=== PATIENT | female | born 1980 | race Caucasian/White ===

== ENCOUNTER 2018-06-23 14:43 | Emergency (ER) | payer BC ==
[2018-06-23 14:54] VITALS: BP 153/99
--- NOTE | 2018-06-23 15:28 | UC ---
Skin Complaint HPI - HPI Summary HPI Summary: Patient is a 37year old , who present today to the urgent care with facial rash that started last week. she notices at at work, she works at [employer] which is a delinquent [employer] facility. she noticed a facial rash first time last week and felt it was a reaction to something, was seen at the nurse's office at work and she was given hydrocortisone 1% ointment which resolved her rash completely . She was also taking Benadryl at night for itching. She returns to work today and her rash came back again in similar places on the face. She is worried that she is allergic to something at work. Rashes mainly on the forehead along with side of the face and the neck sparing the nose and the check. No conjunctival irritation is noted. Nobody else at work with similar symptoms. Nothing has changed at work. Denies any new soap, detergent , cosmetics, food or a possible exposure. she denies any recent illness Denies any fever, chills, cough chest pain or shortness of breath . Denies any abdominal pain , nausea or vomiting , diarrhea or constipation. she has no difficulty with breathing or swallowing food. - History of Current Complaint Chief Complaint: UCSkin Time Seen by Provider: 06/23/18 15:23 Stated Complaint: POSS ALLERGIC REACTION Hx Obtained From: Patient Hx Last Menstrual Period: JUNE 05 Pain Intensity: 0 - Allergy/Home Medications Allergies/Adverse Reactions: Allergies Allergy/AdvReac Type Severity Reaction Status Date / Time naproxen [From Aleve] Allergy Hives Verified 06/23/18 14:55 Home Medications: Home Medications Hydrocortisone 1% CREAM* PRN 06/23/18 [History] PMH/Surg Hx/FS Hx/Imm Hx - Additional Past Medical History Additional PMH: diabetes mellitus Previously Healthy: Yes - Surgical History Surgical History: None - Social History Alcohol Use: Occasionally Substance Use Type: None Smoking Status (MU): Current Every Day Smoker Type: Cigarettes Amount Used/How Often: 1/2 PPD Have You Smoked in the Last Year: Yes Review of Systems All Other Systems Reviewed And Are Negative: Yes Constitutional: Positive: Negative Skin: Positive: Rash - maculopapular pinkish nonblanching rash on the face Eyes: Positive: Negative ENT: Positive: Negative Respiratory: Positive: Negative Cardiovascular: Positive: Negative Gastrointestinal: Positive: Negative Genitourinary: Positive: Negative Motor: Positive: Negative Neurovascular: Positive: Negative Musculoskeletal: Positive: Negative Neurological: Positive: Negative Psychological: Positive: Negative Physical Exam - Summary Physical Exam Summary: Physical Exam: Const: Appears well. No signs of apparent distress present. Alert and oriented x 3. Musculo: Walks with a normal gait. Head/Face: Atraumatic, normocephalic on inspection. Eyes: EOMI and PERRLA in both eyes. Conjunctivae clear. No discharge noted ENT: Hearing normal, TM normal appearing bilaterally No tenderness to palpation on maxillary and frontal sinus. No pharyngeal erythema or exudates . Uvula is midline. No cervical or submandibular lymphadenopathy noted. Respiratory: Respirations are unlabored. Lungs clear to auscultation bilaterally, no wheezing , rhonchi or rales noted . CVS: Regular rate and Rhythm, S1S2 normal , no murmurs identified. Extremities: Peripheral circulation is grossly normal. Pulses 2+ Abdomen : Soft non tender , nondistended , Bowel sounds present . No guarding , rebound tenderness or rigidity noted. Skin:maculopapular pinkish nonblanching rash on the face- involving the forehead , , side of the face and the neck. It spares the cheeks and nose and the chin. There is some follicles noted as well. No draining lesions noted. Neuro: Cranial nerves II to XII intact, motor and sensory intact. DTR Intact bilaterally. Mood is normal. Affect is normal. Triage Information Reviewed: Yes Vital Signs: Initial Vital Signs Temp 99.7 F 06/23/18 14:49 Pulse 89 06/23/18 14:49 Resp 16 06/23/18 14:49 BP 153/99 06/23/18 14:49 Pulse Ox 98 06/23/18 14:49 Vital Signs Reviewed: Yes Course/Dx - Course Course Of Treatment: During the visit today, we discussed the findings and further plan. thereis a possibility of some exposure at work that she is becoming allergic to. Plan to treat it with a short course of oral steroids, along with topical hydrocortisone. Advised her to take Benadryl as needed. I will prescribe the medication to the pharmacy . she will follow-up with dermatology and if needed with asthma and allergy specialists. Patient expressed understanding . - Diagnoses Provider Diagnosis: Allergic reaction, Dermatitis Discharge - Sign-Out/Discharge Documenting (check all that apply): Patient Departure All imaging exams completed and their final reports reviewed: No Studies - Discharge Plan Condition: Stable Disposition: HOME Prescriptions: Hydrocortisone 1% CREAM(NF) 1 applic TOPICAL BID 5 Days #1 tube predniSONE [Prednisone 20 MG TAB] 20 mg PO DAILY 5 Days #10 tablet Patient Education Materials: Dermatitis (ED) Forms: *Work Release Referrals: Maurizio Carreon MD [Medical Doctor] - 2 Days Wallace Mitchell MD [Medical Doctor] - 3 Days Camlio Javier [Primary Care Provider] - Additional Instructions: Please start taking the medication as prescribed to the pharmacy . Benadryl 25-50 mg as needed every 6 hours. Follow up with your primary care doctor as needed follow-up with dermatology and possible asthma and cardiac exercise specialist in 2-3 days. Patients blood pressure slightly high in Urgent care today , plan follow up with PCP for better control Return to Urgent care / ER if symptoms get worse. - Billing Disposition and Condition Condition: STABLE Disposition: Home
== END 2018-06-23 15:55 | disposition home or self-care (01) ==
LOC: UCEAST 14:43
DX: T78.40XA Allergy, unspecified, initial encounter (principal); L30.9 Dermatitis, unspecified; F17.210 Nicotine dependence, cigarettes, uncomplicated; Z88.8 Allergy status to other drugs, medicaments and biological substances; X58.XXXA Exposure to other specified factors, initial encounter; Y92.9 Unspecified place or not applicable
CPT/HCPCS: 99212; G0463

== ENCOUNTER 2018-12-15 16:36 | Emergency (ER) | payer BC, OTHER ==
[2018-12-15 16:46] VITALS: BP 138/92
--- NOTE | 2018-12-15 17:08 | UC ---
Respiratory Complaint HPI - HPI Summary HPI Summary: coughing for months no fevers or SOB - History of Current Complaint Chief Complaint: UCRespiratory Stated Complaint: COUGH Time Seen by Provider: 12/15/18 17:01 Hx Obtained From: Patient Hx Last Menstrual Period: [id number] ?: No Onset/Duration: Gradual Onset, Lasting Weeks - 4+ Pain Intensity: 5 Pain Scale Used: 0-10 Numeric Character: Cough: Nonproductive Alleviating Factors: Nothing - Allergies/Home Medications Allergies/Adverse Reactions: Allergies Allergy/AdvReac Type Severity Reaction Status Date / Time naproxen [From Aleve] Allergy Hives Verified 12/15/18 16:47 Home Medications: Home Medications Lisinopril TAB* [Prinivil TAB 10 MG*] 10 mg PO DAILY 12/15/18 [History Confirmed 12/15/18] metFORMIN* [Glucophage 500 MG TAB *] 500 mg PO BID 12/15/18 [History Confirmed 12/15/18] PMH/Surg Hx/FS Hx/Imm Hx Previously Healthy: No Endocrine History: Diabetes Cardiovascular History: Hypertension - Surgical History Surgical History: None - Family History Known Family History: Positive: None - Social History Occupation: Employed Full-time Lives: With Family Alcohol Use: Rare Substance Use Type: None Smoking Status (MU): Former Smoker Type: Cigarettes Amount Used/How Often: 1/2 PPD Have You Smoked in the Last Year: Yes When Did the Patient Quit Smoking/Using Tobacco: [id number] Review of Systems All Other Systems Reviewed And Are Negative: Yes Constitutional: Positive: Negative Skin: Positive: Negative Eyes: Positive: Negative ENT: Positive: Negative Respiratory: Positive: Cough Cardiovascular: Positive: Negative Gastrointestinal: Positive: Negative Genitourinary: Positive: Negative Motor: Positive: Negative Neurovascular: Positive: Negative Musculoskeletal: Positive: Negative Neurological: Positive: Negative Psychological: Positive: Negative Is Patient Immunocompromised?: No Physical Exam Triage Information Reviewed: Yes Appearance: Well-Appearing, No Pain Distress, Well-Nourished Vital Signs: Initial Vital Signs Temp 99.0 F 12/15/18 16:41 Pulse 86 12/15/18 16:41 Resp 16 12/15/18 16:41 BP 138/92 12/15/18 16:41 Pulse Ox 100 12/15/18 16:41 Vital Signs Reviewed: Yes Eye Exam: Normal Eyes: Positive: Conjunctiva Clear ENT Exam: Normal ENT: Positive: Normal ENT inspection, Hearing grossly normal, Pharynx normal, TMs normal, Uvula midline. Negative: Nasal drainage, Hoarse voice, Dental tenderness, Sinus tenderness Neck exam: Normal Neck: Positive: Supple, Nontender Respiratory Exam: Normal Respiratory: Positive: Chest non-tender, Lungs clear, Normal breath sounds, No respiratory distress, No accessory muscle use Cardiovascular Exam: Normal Cardiovascular: Positive: RRR, No Murmur, Pulses Normal, Brisk Capillary Refill Musculoskeletal Exam: Normal Musculoskeletal: Positive: Strength Intact, ROM Intact, No Edema Neurological Exam: Normal Neurological: Positive: Alert, Muscle Tone Normal Psychological Exam: Normal Skin Exam: Normal Respiratory Course/Dx - Course Course Of Treatment: continue with smoking cesassation, albuterol with spacer, tessalon and zithromax follow with pcp - Differential Dx/Diagnosis Provider Diagnosis: Bronchitis with bronchospasm Discharge ED - Sign-Out/Discharge Documenting (check all that apply): Patient Departure All imaging exams completed and their final reports reviewed: No Studies - Discharge Plan Condition: Stable Disposition: HOME Prescriptions: Albuterol HFA INHALER* [Ventolin HFA Inhaler*] 2 puff INH Q4H PRN #1 mdi PRN Reason: Cough Azithromycin TAB* [Zithromax TAB (Z-ANGUS) 250 mg #6 tabs] 2 tab PO .TODAY, THEN 1 DAILY #1 angus Benzonatate CAP* [Tessalon 100 MG CAP*] 1 - 2 cap PO TID PRN #40 cap PRN Reason: Cough Patient Education Materials: How to Use a Metered-Dose Inhaler (ED), Acute Bronchitis (ED), Bronchospasm (ED) Forms: *Work Release Referrals: Camilo Javier [Primary Care Provider] - 1 Week - Billing Disposition and Condition Condition: STABLE Disposition: Home
== END 2018-12-15 17:21 | disposition home or self-care (01) ==
LOC: UCEAST 16:36
DX: J40 Bronchitis, not specified as acute or chronic (principal); J98.01 Acute bronchospasm; I10 Essential (primary) hypertension; E11.9 Type 2 diabetes mellitus without complications; Z88.8 Allergy status to other drugs, medicaments and biological substances; Z79.84 Long term (current) use of oral hypoglycemic drugs; Z79.899 Other long term (current) drug therapy; Z87.891 Personal history of nicotine dependence
CPT/HCPCS: 99212; G0463

== ENCOUNTER 2019-01-23 15:36 | Emergency (ER) | payer BC ==
[2019-01-23 15:47] VITALS: BP 159/101
--- NOTE | 2019-01-23 16:31 | UC ---
Respiratory Complaint HPI - HPI Summary HPI Summary: Patient is a 38yo female presenting with complaint of cough and chest tightness for over 1 month. Patient states she was seen here at the end of november and diagnosed with bronchitis. Patient states she feels like she "just can't fully get rid of cough." Also notes a hoarse voice for the past week due to excessive coughing. Denies shortness of breath and wheezing. Denies other URI symptoms. Denies fever and chills. Denies nausea and vomiting. Patient states she was given Tessalon Perles over a month ago when she was seen here and states they did not help. Also states she received an inhaler and azithromycin. States she believes inhaler was helping but she lost it. Patient quit smoking back in October this year. - History of Current Complaint Chief Complaint: UCRespiratory Stated Complaint: URI Hx Obtained From: Patient Hx Last Menstrual Period: 01/14/19 Timing: Constant Severity Currently: Mild Pain Intensity: 3 Pain Scale Used: 0-10 Numeric - Allergies/Home Medications Allergies/Adverse Reactions: Allergies Allergy/AdvReac Type Severity Reaction Status Date / Time naproxen [From Aleve] Allergy Hives Verified 01/23/19 15:47 PMH/Surg Hx/FS Hx/Imm Hx Cardiovascular History: Hypertension - Surgical History Surgical History: None - Family History Known Family History: Positive: None - Social History Occupation: Employed Full-time Lives: With Family Alcohol Use: Rare Substance Use Type: None Smoking Status (MU): Former Smoker Type: Cigarettes Amount Used/How Often: 1/2 PPD Have You Smoked in the Last Year: Yes When Did the Patient Quit Smoking/Using Tobacco: [id number] Review of Systems All Other Systems Reviewed And Are Negative: Yes Constitutional: Positive: Negative. Negative: Fever, Chills, Fatigue ENT: Negative: Sore Throat, Ear Ache, Nasal Discharge, Sinus Congestion, Sinus Pain/Tenderness Respiratory: Positive: Cough - non productive. Negative: Shortness Of Breath Cardiovascular: Positive: Negative Gastrointestinal: Positive: Negative Musculoskeletal: Positive: Negative Neurological: Positive: Negative Physical Exam Triage Information Reviewed: Yes Appearance: Well-Appearing, No Pain Distress, Well-Nourished Vital Signs: Initial Vital Signs Temp 98.2 F 01/23/19 15:40 Pulse 85 01/23/19 15:40 Resp 17 01/23/19 15:40 BP 159/101 11/07/19 15:40 Pulse Ox 98 01/23/19 15:40 Vital Signs Reviewed: Yes Eyes: Positive: Conjunctiva Clear ENT: Positive: Hearing grossly normal, Pharynx normal, TMs normal, Hoarse voice , Uvula midline. Negative: Pharyngeal erythema, Nasal congestion, Nasal drainage, Tonsillar swelling, Tonsillar exudate, Trismus, Muffled voice, Sinus tenderness Neck exam: Normal Neck: Positive: Supple, Nontender, No Lymphadenopathy Respiratory Exam: Normal Respiratory: Positive: Lungs clear, Normal breath sounds, No respiratory distress, No accessory muscle use. Negative: Crackles, Rhonchi, Stridor, Wheezing Cardiovascular Exam: Normal Cardiovascular: Positive: RRR Neurological: Positive: Alert Psychological: Positive: Age Appropriate Behavior Respiratory Course/Dx - Course Course Of Treatment: Discussed bronchitis and duration of illness and symptoms with patient. Instructed to continue with symptomatic treatment including use of inhaler. I also prescribed short course of prednisone to help relieve inflammation in lungs. Instructed patient to follow up with primary care physician if symptoms persist. Also discussed patient's elevated blood pressure today. Patient states she has lisinopril which she does not take every day. Educated patient on htn and encouraged to take her htn meds and follow up with pcp as soon as possible for pressure recheck. Patient voiced understanding and agreed with the treatment plan. - Differential Dx/Diagnosis Provider Diagnosis: Bronchitis, Elevated blood pressure reading in office with diagnosis of hypertension Discharge ED - Sign-Out/Discharge Documenting (check all that apply): Patient Departure All imaging exams completed and their final reports reviewed: No Studies - Discharge Plan Condition: Stable Disposition: HOME Prescriptions: Albuterol HFA INHALER* [Ventolin HFA Inhaler*] 1 - 2 puff INH Q6H PRN #1 mdi PRN Reason: Cough predniSONE TAB* [Deltasone TAB*] 50 mg PO DAILY #4 tab Patient Education Materials: Prednisone (By mouth), Acute Bronchitis (ED) Referrals: Camilo Javier [Primary Care Provider] - 1 Week Additional Instructions: As discussed, you may use the inhaler every 4-6 hours as needed for relief of your coughing and chest tightness. Take the prednisone as prescribed to help reduce inflammation. A humidifer or hot steam from the shower may also help alleviate coughing symptoms. Follow up with your primary care physician if your symptoms persist. Your blood pressure was elevated today. Make sure you are taking your lisinopril as prescribed for your hypertension and follow up with your primary care physician for a re-check of your blood pressure within the next week or two. - Billing Disposition and Condition Condition: STABLE Disposition: Home
== END 2019-01-23 16:34 | disposition home or self-care (01) ==
LOC: UCEAST 15:36
DX: J40 Bronchitis, not specified as acute or chronic (principal); R03.0 Elevated blood-pressure reading, without diagnosis of hypertension; I10 Essential (primary) hypertension; Z88.6 Allergy status to analgesic agent; Z87.891 Personal history of nicotine dependence
CPT/HCPCS: 99212; G0463

== ENCOUNTER 2019-02-28 11:00 | Emergency (ER) | payer BC ==
[2019-02-28 11:17] VITALS: BP 160/82
--- NOTE | 2019-02-28 11:47 | UC ---
Respiratory Complaint HPI - HPI Summary HPI Summary: Ms. Burrell has had a nagging cough for over 2 months. She was initially treated here with steroids and albuterol. She thinks they might help a little bit but the cough is not resolved. She has not had a recent URI symptoms. The cough is dry but produces maybe a little phlegm. She was started on lisinopril through 4 months ago by her in [facility]. They have since moved and she has not found a new doctor. - History of Current Complaint Chief Complaint: UCRespiratory Stated Complaint: COUGH Time Seen by Provider: 02/28/19 11:20 Hx Obtained From: Patient Hx Last Menstrual Period: 02/16/19 Onset/Duration: Gradual Onset, Lasting Weeks Timing: Constant Severity Initially: Moderate Severity Currently: Moderate Pain Intensity: 0 Character: Cough: Nonproductive Associated Signs And Symptoms: Positive: Negative - Allergies/Home Medications Allergies/Adverse Reactions: Allergies Allergy/AdvReac Type Severity Reaction Status Date / Time naproxen [From Aleve] Allergy Hives Verified 02/28/19 11:17 PMH/Surg Hx/FS Hx/Imm Hx Endocrine History: Diabetes Cardiovascular History: Hypertension - Surgical History Surgical History: None - Family History Known Family History: Positive: None - Social History Alcohol Use: Rare Substance Use Type: None Smoking Status (MU): Former Smoker Type: Cigarettes Amount Used/How Often: 1/2 PPD Have You Smoked in the Last Year: Yes When Did the Patient Quit Smoking/Using Tobacco: [id number] Review of Systems All Other Systems Reviewed And Are Negative: Yes Respiratory: Positive: Cough Physical Exam - Summary Physical Exam Summary: she is nontoxic in appearance with stable vitals. Triage Information Reviewed: Yes Appearance: Well-Appearing Vital Signs: Initial Vital Signs Temp 98.9 F 02/28/19 11:12 Pulse 89 02/28/19 11:12 Resp 16 02/28/19 11:12 BP 160/82 02/28/19 11:12 Pulse Ox 98 02/28/19 11:12 Vital Signs Reviewed: Yes ENT Exam: Normal Respiratory Exam: Normal Cardiovascular Exam: Normal Skin Exam: Normal Respiratory Course/Dx - Course Course Of Treatment: Is possible for lisinopril to cause a cough. She does not look to have an acute infection. She is not wheezing at this time and the prednisone and albuterol have marginal effect. I'm going to try switching her to hydrochlorothiazide and encouraging follow-up with her PCP. She may need a pulmonary consult. - Differential Dx/Diagnosis Provider Diagnosis: Cough due to ELIZABETH inhibitor Discharge ED - Sign-Out/Discharge Documenting (check all that apply): Patient Departure All imaging exams completed and their final reports reviewed: No Studies - Discharge Plan Condition: Stable Disposition: HOME Prescriptions: Hydrochlorothiazide TAB* [Hydrodiuril TAB*] 12.5 mg PO DAILY #30 tab Patient Education Materials: Chronic Cough (ED) Referrals: Camilo Javier [Primary Care Provider] - [facility] [Outside] Additional Instructions: Stop taking the lisinopril and start taking hydrochlorothiazide. Follow up with a primary care physician within the next week or 2. - Billing Disposition and Condition Condition: STABLE Disposition: Home
== END 2019-02-28 12:07 | disposition home or self-care (01) ==
LOC: UCEAST 11:00
DX: R05 Cough (principal); T46.4X5A Adverse effect of angiotensin-converting-enzyme inhibitors, initial encounter; E11.9 Type 2 diabetes mellitus without complications; I10 Essential (primary) hypertension; Z87.891 Personal history of nicotine dependence; Y92.9 Unspecified place or not applicable
CPT/HCPCS: 99212; G0463